=== PATIENT | female | born 1980 | race African-American/Black ===

== ENCOUNTER → 2019-12-14 17:16 | Outpatient (CLI) | payer BC, OTHER, SELFPAY ==
--- NOTE | ~2019-12-14 | MR_ITS ---
EXAMINATION: MR brain/brain stem wo con DATE: 12/14/2019 18:21 INDICATION: Paresthesias of skin with 3 weeks of bilateral numbness and pain in the legs. TECHNIQUE: Magnetic resonance imaging (MRI) of the brain and brainstem was performed without intraven ous contrast. Sequences included sagittal and axial T1-weighted SE, axial diffusion-weighted FS SE, a xial T2*-weighted GRE, axial T2-weighted FLAIR, and axial T2-weighted FSE. Apparent diffusion coeffic ient (ADC) maps were created. COMPARISON: None. FINDINGS: There are no areas of restricted diffusion to suggest acute infarction. No intracranial hemorrhage or abnormal intracranial mass lesion. There are no intraparenchymal signal abnormalities seen on the ot her pulse sequences. The ventricles are symmetric and normal in size with normal variant cavum septum pellucidum. There are no abnormal extra-axial fluid collections. Flow voids are seen in the cerebral arteries on the T2-weighted sequences consistent with their expected patency. Mild mucosal thickenin g in the bilateral ethmoid sinuses. Visualized orbits and soft tissues are unremarkable. Mild to mode rate mid cervical spondylosis. IMPRESSION: 1. Normal brain. No acute intracranial process. Reviewed, dictated and finalized at location A. [facility] POLICE DETECTIVE
== END ==
PROVIDERS: Visit Provider Psychiatry & Neurology Neurology
DX: R20.2 Paresthesia of skin (principal)
CPT/HCPCS: 70551

== ENCOUNTER 2020-01-10 07:50 | Outpatient (CLI) | payer BC, OTHER, SELFPAY ==
--- NOTE | ~2020-01-10 | US_ITS ---
EXAMINATION: US art doppler w press LE DATE: 01/10/2020 09:36 FIRE EQUIPMENT INSPECTOR INDICATION: Peripheral vascular disease TECHNIQUE: Segmental pressures and plethysmographic and Doppler waveforms of the brachial and lower e xtremity arteries were obtained. COMPARISON: None. FINDINGS: Right and left brachial artery pressures of 108 mm Hg and 94 mm Hg, respectively, are concordant (nor mal difference <= 30 mmHg). The right high-thigh pressure index is 1.34 (normal > 1.2). The right ankle-brachial index (SAGE) is 1 .13 (normal >= 0.9-1.0). The right great toe-brachial index (TBI) is 0.78 (normal >= 0.60). The right lower extremity segmental pressure gradients are normal (normal gradients <= 20-30 mmHg between bobby cent levels on the same leg or the same levels on the two legs). Arterial Doppler waveforms are mixed triphasic and biphasic. The left high-thigh pressure index is 1.28. The left SAGE is 1.11. The left TBI is 0.7. The left lower extremity segmental pressure gradients are normal. Arterial Doppler waveforms are biphasic. IMPRESSION: 1. Normal bilateral lower extremity arterial Doppler. Reviewed, dictated and finalized at location B. EQUIPMENT INSPECTOR
== END 2020-01-10 07:51 | disposition home or self-care (01) ==
LOC: ANHIMG 07:58
PROVIDERS: PCP Internal Medicine; Visit Provider Psychiatry & Neurology Neurology
DX: I73.9 Peripheral vascular disease, unspecified (principal)
CPT/HCPCS: 93923

== ENCOUNTER 2020-03-08 10:29 | Outpatient (CLI) | payer BC, OTHER, SELFPAY ==
--- NOTE | 2020-03-08 11:00 | NEURO_ITS ---
Patient Number: [id number] Impression: # Complains of numbness of feet. # Normal nerve conduction study. # Normal needle/EMG exam. # Clinical correlation recommended. Nerve Conduction Studies Anti Sensory Summary Table Stim Site NR Peak (ms) P-T Amp (?V) Site1 Site2 Delta-P (ms) Dist (cm) Apollo (m/s) Left Sup Fibular Anti Sensory (Ant Lat Mall) 14 cm 3.8 18.4 14 cm Ant Lat Mall 3.8 16.0 42 Right Sup Fibular Anti Sensory (Ant Lat Mall) 14 cm 3.1 26.0 14 cm Ant Lat Mall 3.1 16.0 52 Left Sural Anti Sensory (Lat Mall) Calf 3.6 15.1 Calf Lat Mall 3.6 16.0 44 Right Sural Anti Sensory (Lat Mall) Calf 3.8 8.2 Calf Lat Mall 3.8 16.0 42 Motor Summary Table Stim Site NR Onset (ms) O-P Amp (mV) Site1 Site2 Delta-0 (ms) Dist (cm) Apollo (m/s) Left Peroneal Motor (Vastus Med) Ankle 4.3 1.2 Popit Ankle 7.2 38.0 53 Popit 11.5 4.3 Right Peroneal Motor (Vastus Med) Ankle 3.8 1.9 Popit Ankle 7.1 40.0 56 Popit 10.9 1.6 Left Tibial Motor (Abd Conn Brev) Ankle 4.5 7.0 Knee Ankle 7.8 41.0 53 Knee 12.3 5.0 Right Tibial Motor (Abd Conn Brev) Ankle 4.3 5.7 Knee Ankle 8.0 43.0 54 Knee 12.3 6.3 F Wave Studies NR F-Lat (ms) L-R F-Lat (ms) Left Peroneal (Mrkrs) (EDB) 46.17 1.67 Right Peroneal (Mrkrs) (EDB) 47.84 1.67 Left Tibial (Mrkrs) (Abd Hallucis) 46.20 0.35 Right Tibial (Mrkrs) (Abd Hallucis) 46.55 0.35 EMG Side Muscle Nerve Root Ins Act Fibs Amp Dur Recrt Comment Right AntTibialis Dp Br Fibular L4-5 Nml Nml Nml Nml Nml Right Gastroc Tibial S1-2 Nml Nml Nml Nml Nml Right Fibularis Long Sup Br Fibular L5-S1 Nml Nml Nml Nml Nml Right Flex Dig Long Tibial L5-S2 Nml Nml Nml Nml Nml Right Ext Dig Brev Dp Br Fibular L5, S1 Nml Nml Nml Nml Nml Left AntTibialis Dp Br Fibular L4-5 Nml Nml Nml Nml Nml Left Gastroc Tibial S1-2 Nml Nml Nml Nml Nml Left Fibularis Long Sup Br Fibular L5-S1 Nml Nml Nml Nml Nml Left Flex Dig Long Tibial L5-S2 Nml Nml Nml Nml Nml Left Ext Dig Brev Dp Br Fibular L5, S1 Nml Nml Nml Nml Nml MTDD
== END 2020-03-08 10:30 | disposition home or self-care (01) ==
PROVIDERS: PCP Internal Medicine; Visit Provider Psychiatry & Neurology Neurology
DX: R20.2 Paresthesia of skin (principal)
CPT/HCPCS: 95886; 95910